=== PATIENT | female | born 1965 | race Two or more races ===

== ENCOUNTER 2019-03-01 19:17 | Emergency (ER) | payer SELFPAY ==
[~2019-03-01] VITALS: Ht 167.6 cm; Wt 78.9 kg
[2019-03-01 19:33] VITALS: BP 170/91
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
[2019-03-01] MEDS ORDERED: ROBAXIN-750750 MG PO (20:58)
[2019-03-01] MEDS ORDERED: IBUPROFEN600 MG ORAL (20:58)
[2019-03-01 21:20] VITALS: BP 170/91
--- NOTE | 2019-03-02 14:18 | Diagnostic Imaging Report ---
Indication: Right shoulder pain COMPARISON: None Findings: 3 views of the right shoulder were obtained. No acute fractures, malalignment, erosions or periostitis are identified. Soft tissues are unremarkable. Impression: Negative for acute injury
== END 2019-03-01 21:18 | disposition home or self-care (01) ==
LOC: EMR 20:21
DX: S70.11XA Contusion of right thigh, initial encounter (principal); S16.1XXA Strain of muscle, fascia and tendon at neck level, initial encounter; M62.838 Other muscle spasm; V43.52XA Car driver injured in collision with other type car in traffic accident, initial encounter; Y92.410 Unspecified street and highway as the place of occurrence of the external cause; M54.5 Low back pain
CPT/HCPCS: 99283